=== PATIENT | male | born 1985 | race American Indian/Alaskan Native ===

== ENCOUNTER 2018-01-14 15:06 | Emergency (ER) | payer SELFPAY ==
[2018-01-14 15:51] VITALS: BP 127/93
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
== END 2018-01-14 18:53 | disposition home or self-care (01) ==
LOC: ED 15:06
DX: K64.4 Residual hemorrhoidal skin tags (principal); F17.200 Nicotine dependence, unspecified, uncomplicated; Z93.3 Colostomy status; Z87.828 Personal history of other (healed) physical injury and trauma
CPT/HCPCS: 99282